=== PATIENT | female | born 1975 | race Hispanic/Latino ===

== ENCOUNTER 2017-12-04 15:46 | Emergency (ER) | payer OTHER ==
[2017-12-04] MEDS ORDERED: Ondansetron ODT 4 MG TAB ONE (16:39)
[2017-12-04] MEDS ORDERED: Promethazine HCl 25 MG/ML VIAL ONE (16:39)
== END 2017-12-04 16:55 | disposition home or self-care (01) ==
LOC: MADERS 15:46
DX: A08.4 Viral intestinal infection, unspecified (principal); F43.0 Acute stress reaction; F32.9 Major depressive disorder, single episode, unspecified
CPT/HCPCS: 96372; J2550; Q0162

== ENCOUNTER 2025-05-20 14:19 | Emergency (ER) | payer SELFPAY | END 2025-05-20 17:00 | disposition home or self-care (01) | LOC: MADERS 14:19 | DX: Z04.89 Encounter for examination and observation for other specified reasons (principal); I10 Essential (primary) hypertension; Z79.899 Other long term (current) drug therapy | CPT/HCPCS: 99284 ==